=== PATIENT | female | born 1980 | race American Indian/Alaskan Native ===

== ENCOUNTER 2016-08-06 10:56 | Emergency (ER) | payer BC ==
[2016-08-06 11:23] VITALS: BP 124/65
--- NOTE | 2016-08-06 12:36 | XRay Report ---
BILATERAL KNEES, 3 VIEWS History: Bilateral knee pain. Findings: There is normal bone mineralization. No acute osseous findings or joint pathology is appreciated. The soft tissues are unremarkable. Impression: Bilateral knees within normal limits.
--- NOTE | 2016-08-06 14:54 | Emergency Department Report ---
Entered by DEANNE LAFLEUR, acting as scribe for ANASTACIO RODRIGUEZ PA. Chief Complaint: Extremity Injury, Lower Stated Complaint: SWOLLEN KNEES/FROM FALL PLAYING SPORTS Time Seen by Provider: 08/06/16 11:20 - HPI History of Present Illness: 36 y/o female presents c/o bilateral knee pain after falling while playing baseball 2 days ago. Pt denies abrasions, head trauma or LOC. She notes taking advil and icing both knees with mild relief. - ROS Review of Systems: as noted in HPI - Exam Vital Signs: Vital Signs 08/06/16 11:20 Temperature 98.4 F Pulse Rate 68 Respiratory 16 Rate Blood Pressure 124/65 O2 Sat by Pulse 100 Oximetry Physical Exam: General: 36-year-old female in no acute distress. Well-developed, well- nourished. CV: Regular rate and rhythm. No murmurs rubs or gallops. Lungs: Clear to auscultation bilaterally. Abdomen: No tenderness to palpation. No guarding or rebound tenderness. Normal bowel sounds. Mini Neuro: Alert and oriented 3. MSE screening note: Focused history and physical exam performed. Due to findings the following was ordered:bilateral knee x-rat was ordered due to bilateral knee tenderness ED Medical Decision Making - Radiology Data Radiology results: image reviewed x-ray of the bilateral knees shows no acute osseous findings - Medical Decision Making patient was in NAD, patient had bilateral knee tenderness. x-ray of the bilateral knee was normal, no acute osseous findings patient was discharged with a prescription fro tramadol and Ibuprofen. Patient was given information to follow up with an operations specialist. - Differential Diagnosis knee strain, knee sprain, fall ED Disposition for MSE Clinical Impression: Strain of knee, bilateral, Fall Disposition: DISCHARGED TO HOME OR SELFCARE Condition: Good Instructions: Knee Pain (ED) Additional Instructions: take Ibuprofen 800mg every 8 hours as needed for pain, take tramadol every 6 hours as needed for pain. Do not drive or use heavy machinery when taking tramdol Prescriptions: Ibuprofen [Motrin 800 MG tab] 800 mg PO Q8HR PRN #30 tablet PRN Reason: Pain traMADol [Ultram 50 MG tab] 50 mg PO Q6HR PRN #15 tablet PRN Reason: Pain Referrals: EPPPER LEE MD [Staff Physician] - 3-5 Days Forms: Work/School Release Form(ED) This documentation as recorded by the MIQUEL dowling RYAN,accurately reflects the service I personally performed and the decisions made by JENNIFER francis FABIOLA N, PA.
== END 2016-08-06 12:55 | disposition home or self-care (01) ==
LOC: ED 10:56
DX: S86.911A Strain of unspecified muscle(s) and tendon(s) at lower leg level, right leg, initial encounter (principal); S86.912A Strain of unspecified muscle(s) and tendon(s) at lower leg level, left leg, initial encounter; W18.39XA Other fall on same level, initial encounter; Y93.64 Activity, baseball; Y99.8 Other external cause status; Y92.89 Other specified places as the place of occurrence of the external cause
CPT/HCPCS: 99283